=== PATIENT | male | born 1950 ===

== ENCOUNTER 2017-02-10 07:13 | Day surgery (SDC) | payer MEDICARE, OTHER ==
[2017-02-04 10:33] VITALS: BMI 23.6
[2017-02-10] MEDS ORDERED: Gentamicin 160 MG in Sodium Chloride 0.9% 100 ML IVPB ONE (07:45)
[2017-02-10] MEDS ORDERED: Lactated Ringer's 1,000 ML IV ONE ×2 (08:25)
[2017-02-10] MEDS ORDERED: Propofol 10 mg/ml Inj (20 ML) ONE (09:26)
[2017-02-10] MEDS ORDERED: Midazolam 2 MG/2 ML VIAL ONE (09:26)
[2017-02-10] MEDS: cefTRIAXone IV 1 gm in Dextros 50 ML IVPB ONE ×2 (09:30→09:35)
[2017-02-10] MEDS: Lidocaine 2% Jelly (Uro-Jet) ONE ×2 (09:34→09:46)
[2017-02-10] MEDS ORDERED: DiphenhydrAMINE 50 mg/ml Inj IVP PRN (09:56)
[2017-02-10] MEDS ORDERED: HYDROmorphone 0.5 mg/0.5 ml ISec IVP PRN (09:56)
[2017-02-10] MEDS ORDERED: Dexamethasone 4 mg/1 ml IVP PRN (09:56)
[2017-02-10] MEDS ORDERED: Lactated Ringer's 1,000 ML IV SCH (10:00)
[2017-02-10 10:42] VITALS: O2SAT 100
[2017-02-10 11:07] VITALS: BP 116/71; PULSE 80; RESP 18; TEMP 97.1
--- NOTE | 2017-02-10 11:29 | OP ---
PROCEDURE DATE: 02/10/2017 PREOPERATIVE DIAGNOSIS: Elevated prostate specific antigen. POSTOPERATIVE DIAGNOSES: Elevated prostate specific antigen. PROCEDURE: Transrectal ultrasound diagnostic, transrectal ultrasound of the prostate guidance and tr ansrectal prostatic biopsies. SURGEON: Dr. Neo Harden. DESCRIPTION OF PROCEDURE: The patient confirmed prior to the procedure he has not taken any NSAIDs f or a week. He and his were told that, in the event he gets any high fever or chills, he is to c all me immediately and/or go to the Emergency Room. He was brought to the operating room, premedicated with 1 gram of Rocephin IV piggyback and 160 mg ge ntamicin IV piggyback, placed under MAC anesthesia in lithotomy position. The rectum was cleansed wi th Betadine solution. The transducer was introduced and the prostate volume was approximately 54 cm with some calcifications noted at the left base. We now proceeded with prostate biopsy and divided t he prostate into 6 sextants and submitted 2 specimens per sextant for a total of 12. We then maintai dale pressure with the transducer for 5 minutes to promote hemostasis and upon removal of the transduc er, it was dry. The patient tolerated the procedure well. Neo Harden MD cc: 66 TT: 02/10/2017 11:28:38 tn
== END 2017-02-10 12:40 | disposition home or self-care (01) ==
LOC: C.SDS 07:13
PROVIDERS: ATTEND Urology
DX: R97.20 Elevated prostate specific antigen [PSA] (principal)
CPT/HCPCS: 55700; 88305; 88342; J0696; J1580; J7120